=== PATIENT | female | born 1950 | race Caucasian/White ===

== ENCOUNTER → 2018-03-23 | Outpatient (CLI) | payer OTHER, MEDICARE | LOC: M.CT 15:40 | DX: S06.0X9A Concussion with loss of consciousness of unspecified duration, initial encounter (principal); G45.9 Transient cerebral ischemic attack, unspecified; X58.XXXA Exposure to other specified factors, initial encounter; Y93.89 Activity, other specified; Y92.89 Other specified places as the place of occurrence of the external cause; Y99.8 Other external cause status ==

== ENCOUNTER 2018-10-21 06:16 | Inpatient (IN) | payer OTHER, MEDICARE ==
[~2018-10-21] VITALS: Ht 160 cm; Wt 54.2 kg
[2018-10-21 06:21] VITALS: BP 122/59
[2018-10-21 06:33] LABS: URINE BILIRUBIN NEGATIVE (Negative); URINE BLOOD NEGATIVE (Negative); URINE CLARITY CLEAR; URINE COLOR YELLOW; URINE GLUCOSE-RANDOM NEGATIVE (Negative); URINE KETONES NEGATIVE (Negative); URINE LEUKOCYTES-REFLEX NEGATIVE (Negative); URINE NITRITE-REFLEX NEGATIVE (Negative); URINE PROTEIN NEGATIVE (Negative); URINE UROBILINOGEN 0.2 E.U./dl (0.2-1.0)
[2018-10-21] MEDS ORDERED: LINZESS290 MCG PO (06:35)
[2018-10-21] MEDS ORDERED: PROPRANOLOL 1010 MG PO (06:35)
[2018-10-21] MEDS ORDERED: TRAZODONE 150150 M1 PO (06:35)
[2018-10-21] MEDS ORDERED: PROTONIX40 M1 PO (06:37)
[2018-10-21] MEDS ORDERED: AMLODIPINE BESY10 MG PO (06:37)
[2018-10-21] MEDS ORDERED: DIFLUCAN200 MG PO (06:38)
[2018-10-21] MEDS ORDERED: POTASSIUM20 PO (06:38)
[2018-10-21] MEDS ORDERED: MIRAPEX0.25 MG PO (06:39)
[2018-10-21] MEDS ORDERED: ORADENT 0.1% DEN5 G1 TOP (06:39)
[2018-10-21] MEDS ORDERED: ANUSOL-HC25 MG RECTAL (06:40)
[2018-10-21] MEDS ORDERED: STIOLTO RESPIMAT4 GM (06:42)
[2018-10-21 06:44] LABS: HEMATOCRIT 37.2 % (37.0-47.0); HEMOGLOBIN 12.4 gm/dL (12.0-15.0); MCH 30.2 pg (26.0-34.0); MCHC 33.3 g/dL (28.0-37.0); MCV 90.7 fL (80.0-100.0); MPV 7.5 fl. (7.2-11.1); NUCLEATED RBCS 0 /100WBC; PLATELET COUNT* 245 thou/uL (150-400); RDW-CV 13.4 % (10.5-14.5); WBC 11.2 thou/uL (4.0-11.0)
[2018-10-21] MEDS ORDERED: DIAZEPAM 5 MG5 M1 PO (06:45)
[2018-10-21] MEDS ORDERED: PERCOCET PO (06:45)
[2018-10-21] MEDS ORDERED: ALBUTEROL2.5 MG/31 INH (06:46)
[2018-10-21] MEDS ORDERED: IPRAT-ALBUT 0.5-3 ML INH (06:47)
[2018-10-21] MEDS ORDERED: ZOFRAN ODT4 MG PO (06:47)
[2018-10-21] MEDS ORDERED: PROAIR HFA8.5 GM INH (06:48)
[2018-10-21] MEDS ORDERED: XANAX 0.25 MG0.25 MG PO (06:48)
[2018-10-21 06:51] LABS: CALCIUM 9.1 mg/dL (8.5-10.1); CREATININE 0.9 mg/dL (0.6-1.3); POTASSIUM 4.1 mmol/L (3.5-5.1)
[2018-10-21 06:55] LABS: ALBUMIN 3.7 g/dL (3.4-5.0); TOTAL BILIRUBIN 0.4 mg/dL (<0.1-1.0); TOTAL PROTEIN 6.9 g/dL (6.4-8.2)
[2018-10-21 07:06] LABS: ABSOLUTE EOSINOPHILS 0.1 thou/uL (0.0-0.7); ABSOLUTE MONOCYTES 0.7 thou/uL (0.0-1.2); ABSOLUTE NEUTROPHILS 9.4 thou/uL (1.6-8.1); ATYPICAL LYMPHS 3 %; PLATELET ESTIMATE ADEQUATE
--- NOTE | 2018-10-21 07:44 | NUR ---
IV ATTEMPTED BY 2 NURSES. [facility] CALLED TO PLACE A LINE WITH ULTRASOUND. CT IS WAITING ON A LINE TO DO THEIR EXAM ON THE PATIENT. PHYSICIAN NOTIFIED AND PATIENT NOTIFIED.
--- NOTE | 2018-10-21 08:14 | NUR ---
PATIENT OFF UNIT FOR A CT.
--- NOTE | 2018-10-21 10:20 | NUR ---
REPORT CALLED TO [facility] ON [facility]THO. ROUNDING WAS COMPLETED AND PATIENT NEEDS WERE MET. PAIN IS INTENSE AND PARTIALLY MANAGED WITH PRN MEDS.
[2018-10-21 10:51] VITALS: BP 128/63
[2018-10-21 11:32] VITALS: BP 110/59
[2018-10-21 16:30] VITALS: BP 95/46
[2018-10-21 20:00] VITALS: BP 105/56
[2018-10-22 04:13] LABS: HEMATOCRIT 34.3 % (37.0-47.0); HEMOGLOBIN 11.3 gm/dL (12.0-15.0); MCH 30.3 pg (26.0-34.0); MCHC 32.9 g/dL (28.0-37.0); MPV 7.9 fl. (7.2-11.1); RBC 3.73 mil/uL (4.20-5.00); RDW-CV 13.5 % (10.5-14.5); WBC 15.2 thou/uL (4.0-11.0)
[2018-10-22 04:37] LABS: CALCIUM 8.9 mg/dL (8.5-10.1); CREATININE 1.2 mg/dL (0.6-1.3); MAGNESIUM 2.1 mg/dL (1.8-2.4); POTASSIUM 4.1 mmol/L (3.5-5.1)
--- NOTE | 2018-10-22 05:36 | NUR ---
ASSESSMENT: PT REMAIN ALERT AND ORIENT TIMES THREE YET IS FORGETFUL AT TIMES. WAS AT THE BEDSIDE ALL NIGHT. PRN PAIN MEDICATION WAS GIVEN FOR ABD PAIN IN THE RIGHT UPPER QUAD AREA. PT WALKED SLOWLY WALKED AROUND THE ROOM BECAUSE SHE FELT TAHT SHE WANTED TO PASS GAS AND THAT SHE FELT THAT WOULD BE GOOD FOR HER. INITIALLY, PT C/O FEELING DIZZY UPON GETTING UP, WITH ENCOURAGEMENT AND BREATHING TECHNIQUES, PT DID FAIR WITH WALKING TO THE WINDOW AND BACK TO BED. HER AND THIS RH ASSISTED HER. PT CONSISTANTLY SPOKE OF GETTNG LINESSES FOR HER COLON. SHE WAS REMINDED THAT SHE IS NPO UNTIL THE DRArden CHANGES HER DIET. THERE CURRENTLY IS NOT AN ORDER FOR LINESSES. BOTH, PT AND STATED THAT THEY UNDERSTOOD. PT IS PROGRESS SLOW TOWARDS DC GOALS, WILL CONTINUE TO MONITOR.
[2018-10-22 08:00] VITALS: BP 147/70
[2018-10-22 16:00] VITALS: BP 136/54
--- NOTE | 2018-10-22 19:57 | NUR ---
VSS. RESTLESS, IRRITABLE, AGITATED ALL SHIFT. REMOVED 2 IV'S AT PATIENTS REQUEST DUE TO DISCOMFORT. C/O NAUSEA, THEN REQUESTS MEALS. VERY FREQUENT REQUESTS FOR PAIN MEDICATION. EDUCATED ON ORDERED PAIN MANAGEMENT, VERBALIZED UNDERSTANDING, BUT THEN ASKS FOR MEDICATION AGAIN VERY SOON AFTER DISCUSSION. PATIENT STATES THAT THE PAIN MEDICATION DOESNT HELP HER ABDOMINAL AND IV PAIN, BUT APPEARS TO REST COMFORTABLY AFTER BEING MEDICATED. FREQUENTLY SHOT TUBE MACHINE TENDER LIGHT, IMPATIENT IF NURSE IS NOT ABLE TO COME TO ROOM IMMEDIATELY. SPENT SEVERAL HOURS OF SHIFT EXCLUSIVELY WITH THIS PATIENT.
[2018-10-22 20:30] VITALS: BP 107/54
[2018-10-23 00:17] VITALS: BP 87/41
[2018-10-23 04:29] VITALS: BP 107/46
[2018-10-23 05:05] LABS: HEMATOCRIT 34.2 % (37.0-47.0); HEMOGLOBIN 11.2 gm/dL (12.0-15.0); MCH 30.3 pg (26.0-34.0); MCHC 32.9 g/dL (28.0-37.0); MPV 8.3 fl. (7.2-11.1); RBC 3.71 mil/uL (4.20-5.00); RDW-CV 13.5 % (10.5-14.5)
[2018-10-23 05:28] LABS: ALBUMIN 2.9 g/dL (3.4-5.0); CALCIUM 9.1 mg/dL (8.5-10.1); MAGNESIUM 2.2 mg/dL (1.8-2.4); POTASSIUM 4.5 mmol/L (3.5-5.1); TOTAL BILIRUBIN 0.5 mg/dL (<0.1-1.0); TOTAL PROTEIN 6.5 g/dL (6.4-8.2)
--- NOTE | 2018-10-23 06:31 | NUR ---
Alert and oriented x 4. She has been having right upper quadrant pain and some nausea x 1. She rates her pain from 7 to 9. She did have a low BP and propananol was held,we also talked about trying to space the IV pain meds out more b/c of low BP. She did manage to wait 3 hours in between doses one time. The other doses were every 2 hours. She is unsteady when she's up and requires stand by assist. Her has been walking with her. She was stating that the IV in her right forearm is painful,she wants a midline. This shift aqua Kpad was ordered and that has helped. She has slept in short intervals.
[2018-10-23 08:00] VITALS: BP 107/59
[2018-10-23 14:45] VITALS: BP 114/55
[2018-10-23 17:40] VITALS: BP 103/53
--- NOTE | 2018-10-23 18:09 | NUR ---
PATIENT ALERT AND ORIENTED X 4. VITAL SIGNS STABLE ON 2L O2 NASAL CANULA. AFEBRILE. IV PATENT WITH FLUIDS INFUSING. PAIN AND NAUSEA BEING MANAGED WITH IV MEDICATIONS. PRN STOOL SOFTNER GIVEN PER PATIENT REQUEST. SCD'S IN PLACE BILATERALLY. HOURLY ROUNDS MAINTAINED THROUGHOUT THE SHIFT. CALL LIGHT WITHIN REACH. NURSING WILL CONTINUE TO MONITOR.
[2018-10-23 20:00] VITALS: BP 118/61
[2018-10-24 00:25] VITALS: BP 123/63
[2018-10-24 04:00] VITALS: BP 119/62
[2018-10-24 04:01] LABS: HEMATOCRIT 29.7 % (37.0-47.0); HEMOGLOBIN 9.9 gm/dL (12.0-15.0); MCH 30.5 pg (26.0-34.0); MCHC 33.5 g/dL (28.0-37.0); MCV 90.9 fL (80.0-100.0); MPV 7.5 fl. (7.2-11.1); RBC 3.27 mil/uL (4.20-5.00); RDW-CV 13.2 % (10.5-14.5); WBC 5.3 thou/uL (4.0-11.0)
[2018-10-24 04:34] LABS: ALBUMIN 2.6 g/dL (3.4-5.0); ALKALINE PHOSPHATASE 75 U/L (46-116); ANION GAP 9 mmol/L (7-16); BUN 9 mg/dL (7-18); CALCIUM 8.7 mg/dL (8.5-10.1); CHLORIDE 108 mmol/L (98-107); CHOLESTEROL 167 mg/dL (<200); CO2 27 mmol/L (21-32); CREATININE 0.8 mg/dL (0.6-1.3); GLUCOSE 122 mg/dL (70-99); HDL CHOLESTEROL 46 mg/dL (>40); LDL CHOLESTEROL 107 mg/dL (<100); MAGNESIUM 2.1 mg/dL (1.8-2.4); PHOSPHORUS* 3.3 mg/dL (2.5-4.9); POTASSIUM 3.9 mmol/L (3.5-5.1); SGOT 26 U/L (15-37); SGPT 62 U/L (30-65); SODIUM 144 mmol/L (136-145); TC:HDL 3.6 Ratio (Not establshd); TOTAL BILIRUBIN 0.2 mg/dL (<0.1-1.0); TOTAL PROTEIN 5.8 g/dL (6.4-8.2); TRIGLYCERIDE 71 mg/dL (<150); VLDL 14 mg/dL (<40)
[2018-10-24 04:35] LABS: SERUM ASSESSMENT CLEAR
--- NOTE | 2018-10-24 06:00 | NUR ---
Alert and oriented x 4. Up in room to the bedside commode. She has been saying she feels bloated and has gas. Dr Mehta was here last evening and placed orders for simethecone and several other orders including to place a PICC line today. She's rating pain at an 8 and has had IV MS x 3 this shift for abdominal pain. At start of the shift she felt her heart racing. Pulse was 84 with dinamap and apically. Ausclutating heart beat it sounded regular with no extra beats or irregular rhythym. She hadn't had her propanonol and this is most likely the reason. she has had no further complaints. She has slept intermittenly.
[2018-10-24 08:30] VITALS: BP 107/50
--- NOTE | 2018-10-24 09:02 | NUR ---
PATIENT REFUSED PICC LINE
[2018-10-24] MEDS ORDERED: METRONIDAZOLE500 M4 PO (11:45)
[2018-10-24] MEDS ORDERED: CIPRO500 MG PO (11:45)
[2018-10-24 12:18] VITALS: BP 107/50
--- NOTE | 2018-10-24 12:32 | NUR ---
PATIENT REQUESTING TO DISCHARGE HOME. PATIENT STATES SHE IS TOLERATING DIET AND ORAL ANTIBIOTICS. REQUEST I CALL TO CLEAR HER FOR DC SHE DOES NOT WANT PICC LINE FOR TPN. DR. BARAHONA IS OK WITH DISCHARGE. NOTIFIED OF REQUEST. CALLED IN SCRIPT FOR FLAGYL AND CIPRO. IV WAS REMOVED ON INDUSTRIAL ENGINEERING PROFESSOR THIS AM DUE TO PAIN. PICC LINE WAS NOT PLACED PATIENT HAD REFUSED. PATIENT TOLERATED LOW RESIDUE DIET FOR LUNCH, PERCOCET FOR PAIN. HAD 2 BOWEL MOVEMENTS THIS AM. DISCHARGED WITH .
== END 2018-10-24 12:45 | disposition home or self-care (01) | DRG 871 ==
LOC: M.ERS 06:16 → M.TBA-ER 09:29 → M.ORTHSURG 09:29
PROVIDERS: Emergency Medicine; ADMIT Internal Medicine
DX: A41.9 Sepsis, unspecified organism (principal); K35.33 Acute appendicitis with perforation, localized peritonitis, and gangrene, with abscess; F11.20 Opioid dependence, uncomplicated; I10 Essential (primary) hypertension; K57.90 Diverticulosis of intestine, part unspecified, without perforation or abscess without bleeding; K52.9 Noninfective gastroenteritis and colitis, unspecified; K21.9 Gastro-esophageal reflux disease without esophagitis; K58.1 Irritable bowel syndrome with constipation; F41.1 Generalized anxiety disorder; K59.03 Drug induced constipation; T40.605A Adverse effect of unspecified narcotics, initial encounter; J44.9 Chronic obstructive pulmonary disease, unspecified; Y92.89 Other specified places as the place of occurrence of the external cause; Z87.891 Personal history of nicotine dependence; Z90.49 Acquired absence of other specified parts of digestive tract; Z90.710 Acquired absence of both cervix and uterus; Z90.12 Acquired absence of left breast and nipple; Z79.899 Other long term (current) drug therapy; Z80.0 Family history of malignant neoplasm of digestive organs

== ENCOUNTER → 2019-02-14 | Outpatient (CLI) | payer OTHER, MEDICARE ==
[~2019-02-14] MED LIST: ALBUTEROL2.5 MG/31 INH; AMLODIPINE BESY10 MG PO; ANUSOL-HC25 MG RECTAL; CIPRO500 MG PO; DIAZEPAM 5 MG5 M1 PO; DIFLUCAN200 MG PO; IPRAT-ALBUT 0.5-3 ML INH; LINZESS290 MCG PO; METRONIDAZOLE500 M4 PO; MIRAPEX0.25 MG PO; ORADENT 0.1% DEN5 G1 TOP; PERCOCET PO; POTASSIUM20 PO; PROAIR HFA8.5 GM INH; PROPRANOLOL 1010 MG PO; PROTONIX40 M1 PO; STIOLTO RESPIMAT4 GM; TRAZODONE 150150 M1 PO; XANAX 0.25 MG0.25 MG PO; ZOFRAN ODT4 MG PO
--- NOTE | 2019-02-14 16:55 | CARDNUC ---
[place] [address] CARDIAC NUCLEAR IMAGING REPORT Name: BRENDA SMALL Room: [facility]#: [id number] Admission: 02/14/19 Attend Phys: Freedom Lambert, Discharge: Date of : 50 Date of Service: 02/14/19 1654 Report #: [id number] THIS REPORT FOR: //name// APPROVED REPORT Imaging Protocol: Rest Tc-99m/Stress Tc-99m 1 day Study performed: 02/14/2019 12:45:00 Indication: Chest pain, Dyspnea, Palpitations, Dizziness, Syncope. Patient Location: Out-Patient Stress Tech: Madonna Sauceda Stress Nurse: Marylin Cervantes RN NM Tech:SE Villafuerte Ht: 5 ft 1 in Wt: 117 lbs BSA: 1.50 m2 BMI: 22.10 Medical History Medical History: Angina, Arrhythmia, COPD, Fatigue, Former Smoker, HTN, SOB, Weakness, Dizziness, Syncope, HX of falls. Medications: Amlodipine-Valsartan, K-Dur, ProAir, Propranolol. Allergies: Latex, Protonix, Tape/Adhesives, Stiolto Respimat. Cardiac Risk Factors: Age, FHX of CAD, HTN, SOB, Past Smoker, Dizziness, Palpitations, possible MVP reported by patient. Previous Cardiac Procedures: None Pretest Chest Pain Characteristics: No chest pain Exercise History: Indeterminate Physical Disabilities: Generalized weakness, Dizziness, HX of recent falls. Meds Held (24 hrs): Propranolol. Resting Data Rest SPECT myocardial perfusion imaging was performed in supine position 30 minutes following the intravenous injection of 10.8 mCi of Tc-99m Sestamibi. Time of rest injection: 1305 Date: 02/14/2019 The images were gated to evaluate regional wall motion and calculate left ventricular ejection fraction. Administration Route: IV Administration Site: Right Arm Pharmacologic Stress Pharmacologic stress test was performed by injecting Regadenoson 0.4 [place] [address] CARDIAC NUCLEAR IMAGING REPORT Name: GEOVANNYBRENDA Teresa Room: [facility]#: [id number] Admission: 02/14/19 Attend Phys: Freedom Lambert, Discharge: Date of : 50 Date of Service: 02/14/19 1654 Report #: [id number] mg IV push over 10-15 seconds immediately followed by the intravenous injection of 34.4 mCi of Tc-99m Sestamibi. Time of stress injection: 1450 Date: 02/14/2019 Administration Route: IV Administration Site: Right Arm Gated Stress SPECT was performed 40 minutes after stress injection. The images were gated to evaluate regional wall motion and calculate left ventricular ejection fraction. Prone imaging was performed. Stress Test Details Stress Test: Pharmacologic stress was paired with low level exercise. Reason for pharmacologic stress test: Dizziness, Generalized weakness, HX of recent falls.. 60 mg caffeine given for dyspnea, nausea, dizziness, headache.. HR Max Heart Rate (APMHR): 152 bpm Resting HR: 96 bpm Target HR (85% APMHR): 129 bpm Max HR Achieved: 150 bpm % of APMHR: 98 Recovery HR: 110 bpm BP Resting BP: 123/80 mmHg Max BP: 174/83 mmHg Recovery BP: 135/81 mmHg ECG Resting ECG: Sinus Rhythm Stress ECG: Sinus Tachycardia ST Change: None Arrhythmia: None Recovery ECG: Sinus Rhythm Recovery ST Change: None Recovery Arrhythmia: None Clinical Reason for Termination: Completed protocol Stress Symptoms: Abdominal discomfort, Heaviness in chest, Dyspnea, Dizziness, Headache, Lightheaded, Weakness. Exercise duration: 4 min 00 sec Exercise capacity: 2.30 METs Patient had some symptoms of chest heaviness dyspnea and lightheadedness with Lexiscan infusion that are likely medication effect in light of myocardial [place] [address] CARDIAC NUCLEAR IMAGING REPORT Name: BRENDA SMALL Room: [facility]#: [id number] Admission: 02/14/19 Attend Phys: Freedom Lambert, Discharge: Date of : 50 Date of Service: 02/14/19 1654 Report #: [id number] Nurse Comments 68 year old female presented with recent HX of CP, Dizziness, falls, Syncope, Palpitations, SOA. Patient completed a walking Lexiscan with multiple symptoms. 60 Mg IV caffeine administered during recovery r/t headache, stomach pain, lightheadedness, difficulty breathing, effective. Patient was escorted by staff to Nuclear Medicine for images. Patient was stable at that time. Stress ECG Conclusion The baseline 12-lead EKG show sinus rhythm without significant ST or T wave abnormality. EKGs obtained during and post Lexiscan infusion show sinus rhythm and sinus tachycardia with no significant ST or T wave changes when compared to baseline. There were no stress-induced arrhythmias. Study Quality Study: Good Artifact: No artifact Study Data At rest, the left ventricular ejection fraction was 83%.. Post stress, the left ventricular ejection was 77%.. TID = 1.03. Perfusion Normal left ventricular perfusion. Wall Motion Normal left ventricular wall motion. Nuclear Conclusion ECG Findings: negative for ischemia Clinical Findings: negative for ischemia Nuclear Findings: negative for ischemia Exercise Capacity: not assessed Left Ventricular Function: normal Risk Study: low Myocardial perfusion images show no defect to suggest infarct or ischemia. Left ventricular systolic function appears normal on gated studies. This is a low risk study. <Conclusion> The baseline 12-lead EKG show sinus rhythm without significant ST or T wave abnormality. EKGs obtained during and post Lexiscan infusion show sinus rhythm and sinus tachycardia with no significant [place] [address] CARDIAC NUCLEAR IMAGING REPORT Name: BRENDA SMALL Room: [facility]#: [id number] Admission: 02/14/19 Attend Phys: Freedom Lambert, Discharge: Date of : 50 Date of Service: 02/14/19 1654 Report #: [id number] wave changes when compared to baseline. There were no stress-induced arrhythmias. <ELECTRONICALLY SIGNED> By: Freedom Lambert MD, FACC 02/14/19 1654 53 [phone] Freedom Lambert MD, FACC /INF
== END ==
LOC: M.NUC 11-07 08:03 → M.CRD 01-17 13:00 → M.NUC 01-17 13:00 → M.CRD 01-17 15:00 → M.NUC 12:47
DX: R07.2 Precordial pain (principal); F41.9 Anxiety disorder, unspecified; J44.9 Chronic obstructive pulmonary disease, unspecified; E78.5 Hyperlipidemia, unspecified; I10 Essential (primary) hypertension; Z88.8 Allergy status to other drugs, medicaments and biological substances; Z91.040 Latex allergy status; Z91.09 Other allergy status, other than to drugs and biological substances; Z85.3 Personal history of malignant neoplasm of breast; Z90.49 Acquired absence of other specified parts of digestive tract; Z87.891 Personal history of nicotine dependence; Z79.899 Other long term (current) drug therapy

== ENCOUNTER 2019-03-15 18:14 | Emergency (ER) | payer OTHER, MEDICARE ==
[~2019-03-15] VITALS: Ht 160 cm; Wt 52.6 kg
[2019-03-15] MEDS ORDERED: MIRAPEX0.25 MG PO (18:36)
[2019-03-15] MEDS ORDERED: TRIAMCINOLONE A80 G2 TOP (18:36)
[2019-03-15] MEDS ORDERED: ANUSOL-HC25 MG RECTAL (18:37)
[2019-03-15] MEDS ORDERED: ATIVAN0.5 MG PO (18:37)
[2019-03-15] MEDS ORDERED: BIOTIN5000 MC1 PO (18:38)
[2019-03-15] MEDS ORDERED: MAGOX 400400 MG PO (18:38)
[2019-03-15] MEDS ORDERED: MULTI VITAMIN1 EACH PO (18:38)
[2019-03-15] MEDS ORDERED: GABAPENTIN 100100 MG PO (18:39)
[2019-03-15 20:46] VITALS: BP 135/77
== END 2019-03-15 20:47 | disposition home or self-care (01) ==
LOC: M.ERS 18:14
DX: M54.5 Low back pain (principal); I10 Essential (primary) hypertension; Z90.710 Acquired absence of both cervix and uterus; Z90.12 Acquired absence of left breast and nipple

== ENCOUNTER → 2020-03-15 | Outpatient (CLI) | payer OTHER, MEDICARE ==
[~2020-03-15] MED LIST changes: +ATIVAN0.5 MG PO; +BIOTIN5000 MC1 PO; +GABAPENTIN 100100 MG PO; +MAGOX 400400 MG PO; +MULTI VITAMIN1 EACH PO; +TRIAMCINOLONE A80 G2 TOP
== END ==
LOC: M.RAD 10:53
DX: M75.32 Calcific tendinitis of left shoulder (principal)

== ENCOUNTER → 2021-04-25 | Outpatient (CLI) | payer MEDICARE, OTHER | LOC: M.MRI 14:04 | PROVIDERS: ATTEND Internal Medicine | DX: R26.9 Unspecified abnormalities of gait and mobility (principal); R29.6 Repeated falls ==

== ENCOUNTER → 2021-05-26 | Outpatient (CLI) | payer MEDICARE, OTHER ==
--- NOTE | 2021-05-26 15:46 | 2DMMODE ---
[place] [address] 2 D/M-MODE ECHOCARDIOGRAM Name: GEOVANNYBRENDASARA LONG Room: [facility]#: [id number] Admission: 05/26/21 Attend Phys: Freedom Lambert, Discharge: Date of : 50 Date of Service: 05/26/21 1545 Report #: [id number] THIS REPORT FOR: cc: Porsha Moore MD, Lin W. MD Blick, David R. MD [facility] ~ APPROVED REPORT Study performed: 05/26/2021 12:57:07 EXAM: Comprehensive 2D, Doppler, and color-flow Echocardiogram Patient Location: Out-Patient BSA: 1.76 HR: 71 bpm BP: 128/80 mmHg Other Information Study Quality: Good Indications Dyspnea Hypertension/HDD 2D Dimensions IVSd: 10.67 (7-11mm) LVOT Diam: 19.50 (18-24mm) LVDd: 40.06 mm PWd: 9.07 (7-11mm) Ascending Ao: 28.53 (22-36mm) LVDs: 25.48 (25-40mm) Aortic Root: 28.27 mm Volumes Left Atrial Volume (Systole) LA ESV Index: 14.40 mL/m2 Aortic Valve AoV Peak Bruce.: 1.43 m/s AO Peak Gr.: 8.18 mmHg LVOT Max P.28 mmHg AO Mean Gr.: 4.21 mmHg LVOT Mean P.85 mmHg LVOT Max V: 1.03 m/s AO V2 VTI: 31.47 cm LVOT Mean V: 0.61 m/s MARJAN (VTI): 2.72 cm2 LVOT V1 VTI: 28.70 [place] [address] 2 D/M-MODE ECHOCARDIOGRAM Name: BRENDA SMALL Room: [facility]#: [id number] Admission: 05/26/21 Attend Phys: Freedom Lambert, Discharge: Date of : 50 Date of Service: 05/26/21 1545 Report #: [id number] E/A Ratio: 1.13 MV Decel. Time: 169.90 ms MV E Max Bruce.: 0.86 m/s MV PHT: 49.27 ms MVA (PHT): 4.47 cm2 TDI E/Lateral E': 6.14 E/Medial E': 7.82 Medial E' Bruce.: 0.11 m/s Lateral E' Bruce.: 0.14 m/s Pulmonary Valve PV Peak Bruce.: 0.80 m/s PV Peak Gr.: 2.56 mmHg Tricuspid Valve RAP Estimate: 5.00 mmHg TR Peak Gr.: 19.36 mmHg RVSP: 24.36 mmHg PA Pressure: 24.36 mmHg Left Ventricle The left ventricle is normal size. There is normal LV segmental wall motion. There is normal left ventricular wall thickness. Left ventricular systolic function is normal. The left ventricular ejection fraction is within the normal range. LVEF is 55-60%. The left ventricular diastolic function is normal. Right Ventricle The right ventricle is normal size. The right ventricular systolic function is normal. Atria The left atrium size is normal. The right atrium size is normal. Aortic Valve Mild aortic valve sclerosis. No aortic regurgitation is present. There is no aortic valvular stenosis. Mitral Valve The mitral valve is normal in structure. There is no mitral valve regurgitation noted. No evidence of mitral valve stenosis. Tricuspid Valve The tricuspid valve is normal in structure. Mild [place] [address] 2 D/M-MODE ECHOCARDIOGRAM Name: GEOVANNYBRENDA Wylie ETHAN Room: [facility]#: [id number] Admission: 05/26/21 Attend Phys: Freedom Lambert, Discharge: Date of : 50 Date of Service: 05/26/21 1545 Report #: [id number] Pulmonic Valve The pulmonary valve is normal in structure. There is no pulmonic valvular regurgitation. Great Vessels The aortic root is normal in size. IVC is normal in size and collapses >50% with inspiration. Pericardium There is no pericardial effusion. <Conclusion> LVEF is 55-60%. Mild aortic valve sclerosis. <ELECTRONICALLY SIGNED> By: Kevin Perez MD, [facility] 05/26/21 1545 1545 1545 Kevin Perez MD, FACC /INF
--- NOTE | 2021-05-26 17:38 | CARDNUC ---
[place] [address] CARDIAC NUCLEAR IMAGING REPORT Name: BRENDA SMALL ETHAN Room: [facility]#: [id number] Admission: 05/26/21 Attend Phys: Freedom Lambert, Discharge: Date of : 50 Date of Service: 05/26/21 1738 Report #: [id number] THIS REPORT FOR: cc: Porsha Moore MD, Lin W. MD Liston, Michael J. MD [facility] ~ APPROVED REPORT Imaging Protocol: Stress Tc-99m/Rest Tc-99m 1 day Study performed: 05/26/2021 15:58:31 Indication: Dyspnea, HTN. Patient Location: Out-Patient Stress Nurse: CHAYO Montelongo Tech:SE Silva Ht: 5 ft 3 in Wt: 159 lbs BSA: 1.75 m2 BMI: 28.16 Medical History Medical History: Dyspnea, syncope, pulmonary emphysema, COPD, dizziness, palpitations, HX Breast cancer, essential tremors, HX rheumataic fever, raynauds, kidney stent, PND, HTN, HLD, past smoker. Medications: Catapress PRN, Lasix, Metoprolol, Valsartan, K-Dur. Allergies: Latex/tape Cardiac Risk Factors: Age, HTN, Hyperlipidemia, SOB, Past Smoker. Previous Cardiac Procedures: None Pretest Chest Pain Characteristics: No chest pain Exercise History: Indeterminate Physical Disabilities: difficulty following directions, unstable/unsteady gait, weakness. Meds Held (24 hrs): Metoprolol. Resting Data Rest SPECT myocardial perfusion imaging was performed in supine position 30 minutes following the intravenous injection of 9.1 mCi of Tc-99m Sestamibi. Time of rest injection: 14:50 The images were gated to evaluate regional wall motion and calculate left ventricular ejection fraction. Administration Route: [place] [address] CARDIAC NUCLEAR IMAGING REPORT Name: BRENDA SMALL Room: [facility]#: [id number] Admission: 05/26/21 Attend Phys: Freedom Lambert, Discharge: Date of : 50 Date of Service: 05/26/21 1738 Report #: [id number] Administration Site: Right Wrist Pharmacologic Stress Pharmacologic stress test was performed by injecting Regadenoson 0.4 mg IV push over 10-15 seconds immediately followed by the intravenous injection of 32.1 mCi of Tc-99m Sestamibi. Time of stress injection: 16:15 Administration Route: IV Administration Site: Right Wrist Heart Rate at time of stress injection: 96 bpm. Gated Stress SPECT was performed 45 minutes after stress injection. The images were gated to evaluate regional wall motion and calculate left ventricular ejection fraction. Stress Test Details Stress Test: Pharmacologic stress testing performed using 0.4 mg of regadenoson per 5 mL given IV over 10 seconds. Reason for pharmacologic stress test: difficulty following directions, unstable/unsteady gait, weakness.. HR Max Heart Rate (APMHR): 149 bpm Resting HR: 68 bpm Target HR (85% APMHR): 126 bpm Max HR Achieved: 96 bpm % of APMHR: 64 Recovery HR: 92 bpm BP Resting BP: 136/79 mmHg Max BP: 101/57 mmHg Recovery BP: 125/63 mmHg ECG Resting ECG: Sinus Rhythm Stress ECG: Sinus Rhythm ST Change: None Arrhythmia: None Recovery ECG: Sinus Rhythm Recovery ST Change: None Recovery Arrhythmia: None Clinical Reason for Termination: Completed protocol Stress Symptoms: Dizziness Exercise duration: 00 min 00 sec Exercise capacity: 1.00 METs The patient tolerated Lexiscan infusion [place] [address] CARDIAC NUCLEAR IMAGING REPORT Name: BRENDA SMALL ETHAN Room: [facility]#: [id number] Admission: 05/26/21 Attend Phys: Freedom Lambert, Discharge: Date of : 50 Date of Service: 05/26/21 1738 Report #: [id number] symptoms. Nurse Comments Patient tolerated a sitting Lexiscan Nuclear Stress Test. Patient was stable and stated she felt good when escorted to [facility] for imaging. Stress ECG Conclusion The baseline twelve-lead EKG shows sinus rhythm without significant ST segment or T wave abnormality. EKGs obtained during and post Lexiscan infusion show sinus rhythm with no significant ST segment or T wave changes when compared to baseline. There were no stress-induced arrhythmias. Study Quality Study: Good Artifact: No artifact Study Data At rest, the left ventricular ejection fraction was 76%.. Post stress, the left ventricular ejection was 75%.. TID = 0.99. Perfusion Perfusion images obtained at rest and post Lexiscan stress showed uniform uptake of the radioisotope throughout the myocardium. There were no defect to suggest infarct or ischemia. Wall Motion Normal left ventricular wall motion. Nuclear Conclusion ECG Findings: negative for ischemia Clinical Findings: negative for ischemia Nuclear Findings: negative for ischemia Exercise Capacity: not assessed Left Ventricular Function: normal Risk Study: low Myocardial perfusion images show no defect to suggest infarct or ischemia. Left ventricular systolic function appears normal on gated studies. This is a low risk study. <Conclusion> The baseline twelve-lead EKG shows sinus rhythm without significant ST segment or T wave abnormality. EKGs obtained during and post Lexiscan infusion show sinus rhythm with no [place] [address] CARDIAC NUCLEAR IMAGING REPORT Name: BRENDA SMALL Room: [facility]#: [id number] Admission: 05/26/21 Attend Phys: Freedom Lambert, Discharge: Date of : 50 Date of Service: 05/26/21 1738 Report #: [id number] T wave changes when compared to baseline. There were no stress-induced arrhythmias. <ELECTRONICALLY SIGNED> By: Freedom Lambert MD, FACC 05/26/21 1738 37 37 Freedom Lambert MD, FACC /INF
== END ==
LOC: M.NUC 05-06 15:00 → M.CRD 12:38 → M.NUC 14:00
PROVIDERS: ATTEND Internal Medicine Cardiovascular Disease
DX: I08.2 Rheumatic disorders of both aortic and tricuspid valves (principal); R55 Syncope and collapse; I10 Essential (primary) hypertension; J43.9 Emphysema, unspecified; R42 Dizziness and giddiness; R00.2 Palpitations